=== PATIENT | female | born 1950 | race Caucasian/White ===

== ENCOUNTER → 2016-05-06 | Outpatient (CLI) | payer OTHER ==
--- NOTE | 2016-05-06 17:16 | US ---
Complete Retroperitoneal Ultrasound INDICATION: Follow up. COMPARISON: April 02, 2015. TECHNIQUE: Complete retroperitoneal ultrasound is performed. FINDINGS: Right kidney measures 10.1 x 4.4 x 4.6 cm. Dromedary hump is unchanged. No hydronephrosis. No solid or cystic renal mass. Left kidney measures 9.8 x 5.4 x 5 cm. It is also normal in appearance without hydronephrosis. Prevoid bladder volume is 80 mL. Postvoid bladder volume is 14 mL. Bilateral ureteral jets are seen. No fluid collection or ascites. IMPRESSION: Normal evaluation of the kidneys.
== END ==
LOC: FIMAGING 13:44
PROVIDERS: ATTEND Internal Medicine Nephrology
DX: Z03.89 Encounter for observation for other suspected diseases and conditions ruled out (principal)

== ENCOUNTER 2016-09-23 23:10 | Emergency (ER) | payer OTHER ==
--- NOTE | 2016-09-24 00:44 | EDPHY ---
H & P Stated Complaint: shingles pain HPI/ROS: HPI The patient presents with nausea and vomiting for the last 1 day which started slowly and has been intermittent throughout the course of the day. 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 She was started on Valtrex, Vicodin, Zofran. The vomiting initially started after taking Vicodin. She cannot take anti-inflammatories because of chronic kidney insufficiency. She has not had any fevers or chills, abdominal pain. She is in significant pain from her shingles which is at about T5 on the right REVIEW OF SYSTEMS Constitutional: No fever, no chills. Eyes: No discharge. ENT: No sore throat. Cardiovascular: No chest pain, no palpitations. Respiratory: No cough, no shortness of breath. Gastrointestinal: No abdominal pain, no vomiting. Genitourinary: No hematuria. Musculoskeletal: No back pain. Skin: No rashes. Neurological: No headache. PMHx: Interstitial lung disease on prednisone, current doses 7.5 mg, Sjogren's syndrome, chronic kidney disease, hypertension, hyperlipidemia Soc Hx: Lives at home with her family PHYSICAL General Appearance: Alert, no distress Eyes: Pupils equal and round no pallor or injection ENT, Mouth: Mucous membranes moist Respiratory: There are no retractions, lungs are clear to auscultation Cardiovascular: Regular rate and rhythm Gastrointestinal: Abdomen is soft and non-tender, no masses, bowel sounds normal Neurological: A&O, moves all extremities Skin: Warm and dry, vesicular rash which is erythematous of the T5 dermatome on the right Musculoskeletal: Neck is supple non tender Extremities: symmetrical, full range of motion Psychiatric: Patient is oriented X 3, there is no agitation Source: Patient Exam Limitations: No limitations - Personal History Current Tetanus/Diphtheria Vaccine: Yes Current Tetanus Diphtheria and Acellular Pertussis (TDAP): Yes - Medical/Surgical History Hx Asthma: No Hx Chronic Respiratory Disease: Yes Hx Diabetes: No Hx Cardiac Disease: No Hx Renal Disease: No Hx Cirrhosis: No Hx Alcoholism: No Hx HIV/AIDS: No Hx Splenectomy or Spleen Trauma: No Other PMH: PMH: HTN, high cholesterol, shingles, institial lung disease, sjogrens syndrome4, raynauds, - Social History Smoking Status: Never smoked Constitutional: Initial Vital Signs Heart Rate 63 09/23/16 23:18 Respiratory Rate 16 09/23/16 23:18 Blood Pressure 101/65 09/23/16 23:18 O2 Sat (%) 100 09/23/16 23:18 O2 Delivery Mode Nasal Cannula O2 (L/minute) 4 Allergies/Adverse Reactions: No Known Allergies Allergy (Unverified 09/23/16 23:13) Home Medications: Medication Instructions Recorded Ascorbic Acid [Vitamin C 500 mg 500 mg PO DAILY 09/16/15 (*)] Cholecalciferol Vit D3 [Vitamin D3 2,000 units PO DAILY 09/16/15 2000 units] Aspirin EC [Aspirin EC 81 mg (*)] 81 mg PO DAILY #30 tab 09/20/15 Atorvastatin Calcium [Lipitor 20 20 mg PO DAILY #30 tab 09/20/15 mg (*)] predniSONE [Deltasone] 30 mg PO DAILY 11/27/15 Amlodipine Besylate 09/23/16 Baclofen 09/23/16 Indomethacin 09/23/16 Mycophenolate Sodium 09/23/16 Omeprazole 09/23/16 Ranitidine HCl 09/23/16 Valtrex 09/23/16 Vicodin 5-300 mg Tablet 09/23/16 Zofran 09/23/16 morphINE IR [morphINE IR 15 mg (*)] 15 mg PO Q4H PRN #10 tab 09/24/16 predniSONE [Prednisone] 10 mg PO DAILY #19 tab.ds.pk 09/24/16 Medical Decision Making Differential Diagnosis: This is a 66-year-old female with interstitial lung disease, Sjogren syndrome who presents with nausea and vomiting in the setting of Vicodin use for the last 1 day for varicella zoster, she was diagnosed with this yesterday and put on Valtrex. She does not have any abdominal pain. The pain from her shingles hold his significant. Differential diagnosis includes opiate side-effect, gastroenteritis, gastritis, dehydration. In the ER, the patient was given IV fluids, Zofran, Lidoderm patch, fentanyl. Basic labs were checked. These were all normal. Her symptoms improved. I will send her home with instructions to stop Vicodin. Instead she should take acetaminophen 1 g every 6 hours for pain. If she has pain after this, she can take morphine IR. I will also give her a short course of prednisone. - Data Points Laboratory Results: Laboratory Results 09/24/16 00:43 09/24/16 00:43 09/24/16 09/24/16 00:43 00:43 WBC 8.73 10^3/uL 10^3/uL (3.80-9.50) RBC 3.45 10^6/uL L 10^6/uL (4.18-5.33) Hgb 10.2 g/dL L g/dL (12.6-16.3) Hct 31.8 % L % (38.0-47.0) MCV 92.2 fL fL (81.5-99.8) MCH 29.6 pg pg (27.9-34.1) MCHC 32.1 g/dL L g/dL (32.4-36.7) RDW 13.7 % % (11.5-15.2) Plt Count 290 10^3/uL 10^3/uL (150-400) MPV 9.8 fL fL (8.7-11.7) Neut % (Auto) 69.6 % % (39.3-74.2) Lymph % (Auto) 14.5 % L % (15.0-45.0) [place] % (Auto) 13.2 % H % (4.5-13.0) Eos % (Auto) 1.4 % % (0.6-7.6) Baso % (Auto) 0.6 % % (0.3-1.7) Nucleat RBC Rel Count 0.0 % % (0.0-0.2) Absolute Neuts (auto) 6.08 10^3/uL 10^3/uL (1.70-6.50) Absolute Lymphs (auto) 1.27 10^3/uL 10^3/uL (1.00-3.00) Absolute Monos (auto) 1.15 10^3/uL H 10^3/uL (0.30-0.80) Absolute Eos (auto) 0.12 10^3/uL 10^3/uL (0.03-0.40) Absolute Basos (auto) 0.05 10^3/uL 10^3/uL (0.02-0.10) Absolute Nucleated RBC 0.00 10^3/uL 10^3/uL (0-0.01) Immature Gran % 0.7 % % (0.0-1.1) Immature Gran # 0.06 10^3/uL 10^3/uL (0.00-0.10) Sodium 137 mEq/L mEq/L (134-144) Potassium 3.9 mEq/L mEq/L (3.5-5.2) Chloride 102 mEq/L mEq/L (97-110) Carbon Dioxide 25 mEq/l mEq/l (22-31) Anion Gap 10 mEq/L mEq/L (8-16) BUN 19 mg/dL mg/dL (7-23) Creatinine 0.7 mg/dL mg/dL (0.6-1.0) Estimated GFR > 60 Glucose 96 mg/dL mg/dL (70-100) Calcium 9.7 mg/dL mg/dL (8.5-10.4) Total Bilirubin 0.6 mg/dL mg/dL (0.1-1.4) AST 27 IU/L IU/L (14-46) ALT 27 IU/L IU/L (9-52) Alkaline Phosphatase 67 IU/L IU/L (38-126) Total Protein 6.7 g/dL g/dL (6.3-8.2) Albumin 4.0 g/dL g/dL (3.5-5.0) Medications Given: Discontinued Medications Fentanyl (Sublimaze) 50 mcg IVP EDNOW ONE Stop: 09/24/16 00:46 Last Admin: 09/24/16 01:00 Dose: 50 mcg Morphine Sulfate (Morphine Ir) 15 mg PO ONCE ONE Stop: 09/24/16 02:11 Last Admin: 09/24/16 03:07 Dose: 15 mg Ondansetron HCl (Zofran) 4 mg IVP EDNOW ONE Stop: 09/24/16 00:47 Last Admin: 09/24/16 01:35 Dose: 4 mg Ondansetron HCl (Zofran) 4 mg IVP EDNOW ONE Stop: 09/24/16 03:08 Last Admin: 09/24/16 03:18 Dose: 4 mg Departure - Departure Disposition: Home, Routine, Self-Care Clinical Impression: Varicella zoster Nausea & vomiting Qualifiers: Vomiting type: unspecified Vomiting Intractability: non-intractable Qualified Code(s): R11.2 - Nausea with vomiting, unspecified Condition: Good Instructions: Acute Nausea and Vomiting (ED) Additional Instructions: Please stop taking the Vicodin. You should take acetaminophen (Tylenol) 1 g every 6 hours for pain. If the pain is severe after this, then take the morphine tab. You should take prednisone as well to help with the shingles. Return to the emergency room if your worse in any way. Referrals: Alessandra Garcia MD [Primary Care Provider] - As per Instructions Prescriptions: morphINE IR [morphINE IR 15 mg (*)] 15 mg PO Q4H PRN #10 tab PRN Reason: Pain, Breakthrough predniSONE [Prednisone] 10 mg PO DAILY #19 tab.ds.pk
[2016-09-24] MEDS ORDERED: fentaNYL 100 MCG/2 ML INJ IVP ONE (00:45)
[2016-09-24] MEDS ORDERED: ONDANSETRON 4 MG/2 ML VIAL IVP ONE ×2 (00:46→03:07)
[2016-09-24 01:08] LABS: % IMMATURE GRANULYOCYTES 0.7 % (0.0-1.1); ABSOLUTE IMMATURE GRANULOCYTES 0.06 10^3/uL (0.00-0.10); ADD DIFF? NO; ADD MORPH? NO; ADD SCAN? NO; ATYPICAL LYMPHOCYTE FLAG 10 (0-99); FRAGMENT RBC FLAG 0 (0-99); HEMATOCRIT 31.8 % (38.0-47.0); HEMOGLOBIN 10.2 g/dL (12.6-16.3); LEFT SHIFT FLG 10 (0-99); LIPEMIA HEMOLYSIS FLAG 80 (0-99); MEAN CELL HEMOGLOBIN 29.6 pg (27.9-34.1); MEAN CELL HEMOGLOBIN CONCENTR. 32.1 g/dL (32.4-36.7); MEAN CELL VOLUME 92.2 fL (81.5-99.8); MEAN PLATELET VOLUME 9.8 fL (8.7-11.7); PLATELET CLUMPS FLAG 10 (0-99); PLATELET COUNT 290 10^3/uL (150-400); RED BLOOD CELL COUNT 3.45 10^6/uL (4.18-5.33); RED CELL DISTRIBUTION WIDTH 13.7 % (11.5-15.2)
[2016-09-24 01:39] LABS: ALANINE AMINOTRANSFERASE 27 IU/L (9-52); ALKALINE PHOSPHATASE 67 IU/L (38-126); ANION GAP 10 mEq/L (8-16); ASPARTATE AMINOTRANSFERASE 27 IU/L (14-46); BILIRUBIN,TOTAL 0.6 mg/dL (0.1-1.4); CALCIUM 9.7 mg/dL (8.5-10.4); CARBON DIOXIDE 25 mEq/l (22-31); CHLORIDE 102 mEq/L (97-110); CREATININE 0.7 mg/dL (0.6-1.0); GLOMERULAR FILTRATION RATE > 60; GLUCOSE 96 mg/dL (70-100); POTASSIUM 3.9 mEq/L (3.5-5.2); SODIUM 137 mEq/L (134-144); TOTAL PROTEIN 6.7 g/dL (6.3-8.2)
[2016-09-24] MEDS ORDERED: LIDOCAINE 5% 1 EA PATCH TD ONE (02:09)
[2016-09-24] MEDS ORDERED: ONDANSETRON 4 MG/2 ML VIAL ONE (02:57)
[2016-09-24 03:09] VITALS: BP 127/54; PULSE 75; RESP 18; TEMP 97.9; O2SAT 99
[2016-09-24] MEDS ORDERED: LIDOCAINE 5% 1 EA PATCH TD SCH (09:00)
[2016-09-24] MEDS ORDERED: PATCH REMOVAL 1 EA PATCH TD SCH (21:00)
== END 2016-09-24 03:31 | disposition home or self-care (01) ==
DX: R11.2 Nausea with vomiting, unspecified (principal); B02.9 Zoster without complications; B01.9 Varicella without complication; I12.9 Hypertensive chronic kidney disease with stage 1 through stage 4 chronic kidney disease, or unspecified chronic kidney disease; N18.9 Chronic kidney disease, unspecified; Z79.82 Long term (current) use of aspirin
CPT/HCPCS: 96374; 96375; 96376; 99284; J2405; J3010

== ENCOUNTER → 2017-01-12 | Outpatient (CLI) | payer OTHER | LOC: FIMAGING 10:59 | PROVIDERS: ATTEND Family Medicine | DX: Z12.31 Encounter for screening mammogram for malignant neoplasm of breast (principal) | CPT/HCPCS: G0202 ==

== ENCOUNTER → 2018-04-30 | Outpatient (CLI) | payer OTHER | LOC: FIMAGING 13:38 | PROVIDERS: ATTEND Family Medicine | DX: Z12.31 Encounter for screening mammogram for malignant neoplasm of breast (principal) ==

== ENCOUNTER → 2018-05-30 | Outpatient (CLI) | payer OTHER | LOC: FIMAGING 14:03 | PROVIDERS: ATTEND Family Medicine | DX: M25.841 Other specified joint disorders, right hand (principal) ==